=== PATIENT | female | born 1980 | race Hispanic/Latino ===

== ENCOUNTER 2016-08-09 15:35 | Emergency (ER) | payer OTHER ==
[2016-08-09 16:01] VITALS: BMI 22.4
--- NOTE | 2016-08-09 16:03 | ED PDOC ---
Lower Extremity Pain/Injury Time Seen by Provider: 08/09/16 15:50 Chief Complaint (Provider): left ankle injury History Per: Patient History/Exam Limitations: no limitations - Ankle/Foot Description Of Injury: Twisted (while [place] twisted ankle was able to contonue hiking and drivign but after 2 hrs noted inability to bear wght but no swelnig no skin breka no numbness or tingling. ) - Risk Factors DVT Risk Factors: Pos: None Past Medical History Reviewed: Historical Data, Nursing Documentation, Vital Signs - Medical History PMH: No Chronic Diseases - Family History Family History: States: No Known Family Hx - Allergies Allergies/Adverse Reactions: Allergies Allergy/AdvReac Type Severity Reaction Status Date / Time shellfish derived Allergy SHORTNESS Verified 08/09/16 16:01 OF BREATH Review of Systems ROS Statement: Except As Marked, All Systems Reviewed And Found Negative Musculoskeletal: Positive for: Other (ankle pain/foot pain) Physical Exam - Reviewed Nursing Documentation Reviewed: Yes Vital Signs Reviewed: Yes - Physical Exam Appears: Positive for: Well, Non-toxic, No Acute Distress Head Exam: Positive for: ATRAUMATIC, NORMAL INSPECTION, NORMOCEPHALIC Skin: Positive for: Normal Color, Warm, DRY Cardiovascular/Chest: Positive for: Regular Rate, Rhythm Respiratory: Positive for: CNT, Normal Breath Sounds Extremity: Positive for: Other (ankle: no swelling no defomirty neurovasc intact no swelling to dorsum of foot) Neurologic/Psych: Positive for: Alert, Oriented Medical Decision Making Medical Decision Making: no indication at this time for xray-does not meet critieria however given aricast , falguni wrap and crutches. advised to f.u with podiatry and ortho RICE. [facility] Ankle Rules - Malleolar zone tenderness? Posterior edge or tip of lateral malleolus: No Posterior edge or tip of medial malleolus: No Inability to bear weight both immediately and in the ED: Yes - Midfoot zone tenderness? Base of 5th Metatarsal: No Navicular: No Inability to bear weight both immediately and in the ED: No - XRAY INDICATED Is an ankle x-ray indicated based on findings?: No Disposition - Clinical Impression Clinical Impression: Foot sprain - Patient ED Disposition Is Patient to be Admitted: No Counseled Patient/Family Regarding: Diagnosis, Need For Followup - Disposition Referrals: Podiatry Clinic [Outside] Disposition: Routine/Home Disposition Time: 16:04 Condition: GOOD Instructions: Ankle Sprain (ED), Ankle Stirrup Splint (ED), Ankle Exercises ( GEN) Forms: [facility] ED School/Work Excuse
[2016-08-09 16:06] VITALS: O2SAT 100
== END 2016-08-09 16:49 | disposition home or self-care (01) ==
LOC: H.ER 15:35
DX: S93.602A Unspecified sprain of left foot, initial encounter (principal); X50.9XXA Other and unspecified overexertion or strenuous movements or postures, initial encounter; Y92.89 Other specified places as the place of occurrence of the external cause